=== PATIENT | female | born 1960 | race Caucasian/White ===

== ENCOUNTER 2016-10-28 10:59 | Emergency (ER) | payer SELFPAY ==
[2016-10-28 11:10] VITALS: BP 160/74
--- NOTE | 2016-10-28 11:17 | ER Document Report ---
ED Animal Bite - General Mode of Arrival: Ambulatory Information source: Patient TRAVEL OUTSIDE OF THE [place] IN LAST 30 DAYS: Yes - kathryn - HPI Severity of injury: Bitten Onset: Yesterday Context of attack: Animals fighting Type of animal: Dog Animal's immunizations: Unknown Animal captured or known: No Animal control notified: No <AIXA SANCHEZ - Last Filed: 10/28/16 11:35> <ROE LEOS - Last Filed: 10/28/16 13:20> - General Chief Complaint: Dog Bite Stated Complaint: POSSIBLE DOG BITE Time Seen by Provider: 10/28/16 11:15 Notes: Patient is a 56-year-old female who presents to emergency department today secondary to a dog bite to her right arm. Patient states she was walking a dog and another dog came towards her dog. Patient states she attempted to break them up when the other dog bit her. Patient states she does not know this dog and she does not know if that dog was vaccinated. Patient did not contact animal control. Patient states she wishes to defer the rabies vaccines. (AIXA SANCHEZ) - Related Data Allergies/Adverse Reactions: iodine Allergy (Verified 10/28/16 11:08) Past Medical History - General Information source: Patient - Social History Smoking Status: Never Smoker Cigarette use (# per day): No Frequency of alcohol use: None Drug Abuse: None Lives with: Family Family History: Reviewed & Not Pertinent Patient has suicidal ideation: No Patient has homicidal ideation: No - Medical History Medical History: Negative Surgical Hx: Negative <AIXA SANCHEZ - Last Filed: 10/28/16 11:35> Review of Systems - Review of Systems Constitutional: No symptoms reported EENT: No symptoms reported Cardiovascular: No symptoms reported Respiratory: No symptoms reported Gastrointestinal: No symptoms reported Genitourinary: No symptoms reported Female Genitourinary: No symptoms reported Musculoskeletal: No symptoms reported Skin: See HPI, Other - dog bite to right arm Hematologic/Lymphatic: No symptoms reported Neurological/Psychological: No symptoms reported -: Yes All other systems reviewed and negative <AIXA SANCHEZ - Last Filed: 10/28/16 11:35> Physical Exam - Vital signs Interpretation: Normal - General General appearance: Appears well, Alert - HEENT Head: Normocephalic, Atraumatic Eyes: Normal Pupils: PERRL - Respiratory Respiratory status: No respiratory distress Chest status: Nontender Breath sounds: Normal Chest palpation: Normal - Cardiovascular Rhythm: Regular Heart sounds: Normal auscultation Murmur: No - Abdominal Inspection: Normal Distension: No distension Bowel sounds: Normal Tenderness: Nontender Organomegaly: No organomegaly - Back Back: Normal, Nontender - Extremities General upper extremity: Tender, Normal ROM General lower extremity: Normal inspection, Nontender, Normal color, Normal ROM , Normal temperature, Normal weight bearing. No: Milly's sign Forearm: Tender, Other - Puncture wound to right forearm with surrounding erythema. Not go past the elbow or wrist. - Neurological Neuro grossly intact: Yes Cognition: Normal Orientation: AAOx4 [place] Coma Scale Eye Opening: Spontaneous Raz Coma Scale Verbal: Oriented Raz Coma Scale Motor: Obeys Commands [place] Coma Scale Total: 15 Speech: Normal Motor strength normal: LUE, RUE, LLE, RLE Sensory: Normal - Psychological Associated symptoms: Normal affect, Normal mood - Skin Skin Temperature: Warm Skin Moisture: Dry Skin Color: Normal <ROE LEOS - Last Filed: 10/28/16 13:20> - Vital signs Vitals: Temp Pulse Resp BP Pulse Ox 97.6 F 79 20 160/74 H 99 10/28/16 11:08 10/28/16 11:08 10/28/16 11:08 10/28/16 11:08 10/28/16 11:08 Course <AIXA SANCHEZ - Last Filed: 10/28/16 11:35> <ROE LEOS - Last Filed: 10/28/16 13:20> - Re-evaluation Re-evalutation: 10/28/16 13:19 Patient with dog bite to right forearm. Discussed rabies vaccination and immunoglobulin but the patient does not want to do this because of the side effects. Patient will be started on Augmentin and is to return if she has any worsening erythema. Line has been drawn around the wound. Understands and agrees with plan. Stable for discharge. (ROE LEOS) - Vital Signs Vital signs: Temp Pulse Resp BP Pulse Ox 97.6 F 79 20 160/74 H 99 10/28/16 11:08 10/28/16 11:08 10/28/16 11:08 10/28/16 11:08 10/28/16 11:08 Discharge <AIXA SANCHEZ - Last Filed: 10/28/16 11:35> <ROE LEOS - Last Filed: 10/28/16 13:20> - Discharge Clinical Impression: Dog bite of arm Qualifiers: Encounter type: initial encounter Laterality: right Qualified Code(s): S41.151A - Open bite of right upper arm, initial encounter; W54.0XXA - Bitten by dog, initial encounter Cellulitis Qualifiers: Site of cellulitis: extremity Site of cellulitis of extremity: upper extremity Condition: Stable Disposition: HOME, SELF-CARE Instructions: Animal Bites ([facility]), Cellulitis ([facility]), Soap Cleansing ([facility]) Prescriptions: Amox Tr/Potassium Clavulanate [Augmentin 875-125 Tablet] 1 tab PO BID 10 Days Scribe Attestation: 10/28/16 13:20 I personally performed the services described in the documentation, reviewed and edited the documentation which was dictated to the scribe in my presence, and it accurately records my words and actions. (ROE LEOS) Scribe Documentation - Scribe Written by Najma:: Najma Corona, 10/28/2016 1138 acting as scribe for :: Najma <AIXA SANCHEZ - Last Filed: 10/28/16 11:35>
[2016-10-28] MEDS ORDERED: AMOXICILLIN TR/POT CLAVULANATE 500-125 MG TAB PO ONE (11:21)
[2016-10-28] MEDS ORDERED: AMOXICILLIN TR/POT CLAVULANATE 250-125 MG TAB PO ONE (11:21)
== END 2016-10-28 11:48 | disposition home or self-care (01) ==
LOC: ER 10:59
DX: S51.851A Open bite of right forearm, initial encounter (principal); L03.119 Cellulitis of unspecified part of limb; W54.0XXA Bitten by dog, initial encounter; Y93.K1 Activity, walking an animal
CPT/HCPCS: 99283; J3490